=== PATIENT | male | born 1980 | race African-American/Black ===

== ENCOUNTER 2022-06-23 21:07 | Emergency (ER) | payer OTHER ==
[~2022-06-23] VITALS: Ht 182.9 cm; Wt 96.0 kg
[2022-06-23] MEDS ORDERED: IBUPROFEN 400MG TABLET PO ONE (23:00)
[2022-06-23] MEDS ORDERED: DEXAMETHASONE 4MG TABLET PO ONE (23:00)
[2022-06-24] MEDS ORDERED: IBUP-2028 MT (00:09)
[2022-06-24] MEDS ORDERED: TOPUD PO (00:09)
[2022-06-24 00:30] VITALS: BP 129/78
== END 2022-06-24 00:30 | disposition home or self-care (01) ==
LOC: ER 21:07
DX: J03.90 Acute tonsillitis, unspecified (principal)
CPT/HCPCS: 87070; 87430; 99283; J8540